=== PATIENT | male | born 1940 | race Caucasian/White ===

== ENCOUNTER → 2024-06-10 09:43 | Outpatient (REF) | payer OTHER, SELFPAY ==
[2024-06-10 12:16] LABS: Blood Urea Nitrogen 19 mg/dl (9-20); Calcium 9.2 mg/dl (8.4-10.2); Carbon Dioxide 27 mmol/L (22-30); Chloride 102 mmol/L (98-107); Glucose 91 mg/dl (70-99); Magnesium 1.4 mg/dl (1.6-2.3); Potassium 4.5 mmol/L (3.5-5.1); Sodium 139 mmol/L (135-145); eGFR 59.26
[2024-06-10 13:47] LABS: Hemoglobin 11.4 g/dL (13.0-18.0); Mean Corp Hgb Conc. 34.5 g/dL (33.0-37.0); Mean Corpuscular Hgb 34.9 pg (27.0-31.0); Mean Corpuscular Volume 100.9 fL (80.0-94.0); Mean Platelet Volume 10.1 fL (7.4-10.4); Platelet Count 167 10^3/uL (130-400); Red Blood Cell Count 3.27 10^6/uL (4.70-6.10); Red Cell Dist. Width 15.4 % (11.5-14.5); White Blood Cell Count 3.9 10^3/uL (4.8-10.8)
[2024-06-10 14:10] LABS: TSH Reflex To Free T4 2.75 uIU/ml (0.47-4.68)
== END ==
LOC: HWLAB 09:43
PROVIDERS: ATTENDING PHYSICIAN Nurse Practitioner; FAMILY PHYSICIAN Nurse Practitioner Family
DX: I48.91 Unspecified atrial fibrillation (principal); R55 Syncope and collapse
CPT/HCPCS: 36415; 80048; 83735; 84443; 85027

== ENCOUNTER → 2024-06-23 12:33 | Outpatient (REF) | payer OTHER, SELFPAY ==
[2024-06-23 16:41] LABS: Magnesium 1.5 mg/dl (1.6-2.3)
== END ==
LOC: HWLAB 12:33
PROVIDERS: ATTENDING PHYSICIAN Nurse Practitioner; FAMILY PHYSICIAN Nurse Practitioner Family
DX: E83.42 Hypomagnesemia (principal)
CPT/HCPCS: 36415; 83735